=== PATIENT | male | born 1975 | race Caucasian/White ===

== ENCOUNTER 2024-04-20 17:33 | Emergency (ER) | payer OTHER ==
[~2024-04-20] VITALS: Ht 182.9 cm; Wt 63.0 kg
[2024-04-20] MEDS: IBUPROFEN 600 MG TABLET PO ONE (18:18)
[2024-04-20] MEDS: ACETAMINOPHEN 500 MG TABLET PO ONE (18:18)
[2024-04-20 18:23] VITALS: BP 149/82; PULSE 83; RESP 18; TEMP 98.8
== END 2024-04-20 20:01 ==
LOC: EMS 17:36
DX: S52.122A Displaced fracture of head of left radius, initial encounter for closed fracture (principal); F17.210 Nicotine dependence, cigarettes, uncomplicated; F15.90 Other stimulant use, unspecified, uncomplicated; W19.XXXA Unspecified fall, initial encounter; Y93.89 Activity, other specified; Y92.89 Other specified places as the place of occurrence of the external cause; Y99.8 Other external cause status
CPT/HCPCS: 29105; 99283